=== PATIENT | female | born 1965 | race Caucasian/White ===

== ENCOUNTER 2018-08-22 16:17 | Emergency (ER) | payer OTHER ==
[2018-08-22 16:58] VITALS: BP 128/64; PULSE 70; RESP 18; TEMP 98.3
--- NOTE | 2018-08-22 17:51 | XR ---
PROCEDURE: XR foot complete LT 3V DATE AND TIME: 08/22/2018 5:36 PM CLINICAL INDICATION: [facility] Pain TECHNIQUE: Department protocol. 3V COMPARISON: None FINDINGS: There is no fracture or malalignment. The soft tissues are unremarkable. IMPRESSION: NO ACUTE PROCESS.
--- NOTE | 2018-08-22 17:52 | XR ---
PROCEDURE: XR knee complete LT 3V DATE AND TIME: 08/22/2018 5:36 PM CLINICAL INDICATION: [facility] Pain TECHNIQUE: Department protocol. 3V COMPARISON: None FINDINGS: There is no fracture or malalignment. The soft tissues are unremarkable. IMPRESSION: NO ACUTE PROCESS.
--- NOTE | 2018-08-22 17:53 | XR ---
PROCEDURE: XR elbow complete RT 3V DATE AND TIME: 08/22/2018 5:36 PM CLINICAL INDICATION: [facility] Pain TECHNIQUE: Department protocol. 3V COMPARISON: None FINDINGS: There is no fracture or malalignment. The soft tissues are unremarkable. IMPRESSION: NO ACUTE PROCESS.
--- NOTE | 2018-08-22 18:51 | XR ---
PROCEDURE: XR Hip RT and AP Pelvis 3V DATE AND TIME: 08/22/2018 5:36 PM CLINICAL INDICATION: [facility] Pain TECHNIQUE: Department protocol. 3V COMPARISON: None FINDINGS: There is no fracture or malalignment. The soft tissues are unremarkable. IMPRESSION: NO ACUTE PROCESS.
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
== END 2018-08-22 19:27 | disposition home or self-care (01) ==
LOC: EC 16:17
DX: S70.11XA Contusion of right thigh, initial encounter (principal); S70.01XA Contusion of right hip, initial encounter; S80.01XA Contusion of right knee, initial encounter; S50.00XA Contusion of unspecified elbow, initial encounter; Z85.3 Personal history of malignant neoplasm of breast; Z98.890 Other specified postprocedural states; V13.4XXA Pedal cycle driver injured in collision with car, pick-up truck or van in traffic accident, initial encounter; Y93.55 Activity, bike riding; Y92.488 Other paved roadways as the place of occurrence of the external cause
CPT/HCPCS: 73502; 99283